=== PATIENT | female | born 1980 | race Caucasian/White ===

== ENCOUNTER 2020-09-15 17:28 | Emergency (ER) | payer OTHER ==
[~2020-09-15] VITALS: Ht 157.5 cm; Wt 62.6 kg
[~2020-09-15 17:28] MED LIST: ADDERALL 10 MG10 MG; ALPRAZOLAM 0.50.5 M1 PO; ALPRAZOLAM PO; BENTYL 20 MG TA20 M1 PO; DILANTIN 100 M100 MG PO; DILANTIN100 MG; DILANTIN100 MG PO; FENTANYL PA50 MCG/HR; FENTANYL PA50 MCG/HR TP; FLEXERIL PO; HYDROCODONE-AP1 EAC6 PO; IMODIUM A-D1 MG/5 ML; KEPPRA 500 MG500 M1 PO; LEXAPRO 10 MG T10 M1; LEXAPRO 10 MG T10 M1 PO; LEXAPRO20 MG PO; LUPRON DEPOT11.25 M3; MARINOL10 MG; MARINOL10 MG PO; MULTI FOR HER1 EACH; NAPROSYN500 MG PO; NASONEB NASAL1 EACH MC; NORCO 5-325 TA1 EACH PO; OTC PROBIOTIC; OXYCODONE HCL 55 MG PO; OXYCODONE HCL15 MG PO; OXYIR 5 MG CAPSU5 M1 PO; PHENERGAN 25 MG25 M1 PO; PHENERGAN25 M1 RC; PHENERGAN25 MG RECTAL; PREDNISONE 10 M10 MG PO; PREDNISONE 20 M20 M1 PO; PROBIOTIC1 EAC1 PO; PROMETHAZI6.25 MG/2 PO; PROMETHAZINE12.5 M1 PO; PROMS25 WY RECTAL; PROTONIX40 M2 PO; PROTONIX40 MG PO; QUESTRAN PACKET4 GM PO; RESTORIL30 MG; ROXICET 5-3251 EACH; ROXICODONE15 M1 PO; ROXICODONE5 M1 PO; TESSALON200 MG PO; VANCOCIN 125 M125 M1 PO; VANCOCIN 250 M250 M1 PO; VENTOLIN HFA INH8 GM INH; VICODIN; VICODIN 5-5001 EACH PO; VISTARIL 25 MG25 M1 PO; VOLTAREN GEL 1100 G1 TOP; WELCHOL; WELCHOL 625 MG625 M1; WELCHOL 625 MG625 M1 PO; XANAX 0.5 MG0.5 M1 PO; XANAX 1 MG TABLE1 MG PO; XANAX XR2 MG PO; XOPENEX1.25 MG/3 IH; ZANTAC 150MG T150 M1; ZOFRAN ODT4 MG; ZOFRAN ODT4 MG PO; ZOFRAN4 MG PO; ZOFRAN8 MG; ZOFRAN8 MG PO; ZPAK PO
[2020-09-15] MEDS ORDERED: ZOFRAN ODT4 MG PO (18:54)
[2020-09-15] MEDS ORDERED: PHENERGAN 25 MG25 MG PO (18:56)
[2020-09-15] MEDS ORDERED: OSTERA TABLET1 EAC1 PO (18:57)
[2020-09-15] MEDS ORDERED: VIT B PO (18:57)
[2020-09-15] MEDS ORDERED: XARELTO15 MG PO (18:58)
[2020-09-15 19:08] LABS: ABSOLUTE NEUTROPHILS 5.5 thou/uL (1.4-8.2); BASOPHILS 0.8 % (0.0-2.0); EOSINOPHILS 1.4 % (0.0-3.0); HEMATOCRIT 38.9 % (37.0-47.0); HEMOGLOBIN 12.9 gm/dL (12.0-15.0); MCH 30.8 pg (26.0-34.0); MCV 93.1 fL (80.0-100.0); MONOCYTES 6.1 % (1.0-8.0); PLATELET COUNT 405 thou/uL (150-400); POLYS 63.7 % (36.0-66.0); RBC 4.18 mil/uL (4.20-5.00); RDW 14.4 % (10.5-14.5); WBC 8.6 thou/uL (4.0-11.0)
[2020-09-15 19:11] LABS: ANION GAP 9 mmol/L (7-16); BUN 7 mg/dL (7-18); CHLORIDE 104 mmol/L (98-107); CO2 29 mmol/L (21-32); CREATININE 0.8 mg/dL (0.6-1.0); GLUCOSE 90 mg/dL (74-106); POTASSIUM 3.4 mmol/L (3.5-5.1); SODIUM 142 mmol/L (136-145)
[2020-09-15 19:17] LABS: ALBUMIN 3.9 g/dL (3.4-5.0); DIRECT BILIRUBIN < 0.1 mg/dL (<0.1-0.2); LIPASE 92 U/L (73-393); SGOT 12 U/L (15-37); SGPT 18 U/L (14-59); TOTAL BILIRUBIN 0.3 mg/dL (0.2-1.0); TOTAL PROTEIN 7.3 g/dL (6.4-8.2)
[2020-09-15 19:18] LABS: URINE BILIRUBIN NEGATIVE (Negative); URINE BLOOD NEGATIVE (Negative); URINE COLOR YELLOW; URINE GLUCOSE-RANDOM* NEGATIVE (Negative); URINE KETONES NEGATIVE (Negative); URINE NITRITE-REFLEX NEGATIVE (Negative); URINE PROTEIN (DIPSTICK) TRACE (Negative); URINE SPECIFIC GRAVITY 1.015 (1.005-1.035)
[2020-09-15 19:21] LABS: URINE LEUKOCYTES-REFLEX 1+ (Negative)
[2020-09-15 19:22] LABS: URINE CLARITY SL HAZY
[2020-09-15 19:36] LABS: CASTS None Seen /LPF (None Seen); CRYSTALS None Seen /LPF (None Seen); MUCUS >6 Heavy strn/LPF (None Seen); SQUAMOUS >10 Many /LPF (0-3); URINE RBC None Seen /HPF (NONE SEEN); URINE WBC-REFLEX 6-15 Few /HPF (0-5)
[2020-09-15 20:34] VITALS: BP 122/76
--- NOTE | 2020-09-15 21:57 | NUR ---
PT WAS IN WAITING ROOM WAITING FOR HER RIDE. I OVER HEARD HER ASKING OTHER VISITORS WHO THEY WERE HERE FOR AND THEN TELLING THE VISITORS DETAILS THAT SHE OVERHEARD ABOUT THEIR FAMILY MEMBER. SHE STARTED TALKING IN A DISPARAGING MANNER ABOUT THE ER PROVIDER CALLING HER A BITCH AND TELLING THE VISITORS THAT THEY SHOULD HAVE TAKEN THEIR FAMILY TO RESEARCH OR [facility]. I ASKED PT TO STOP TALKING TO OTHER VISITORS AND SIT QUIETLY IN THE WAITING ROOM UNTIL HER RIDE ARRIVES OR SHE CAN WAIT OUTSIDE. 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 I STATED THAT SHE CAN SIT QUIETLY IN THE WAITING ROOM, PT THEN WENT TO THE SECURITY OFFICE TO TALK TO THEM. WHEN SHE SAT BACK DOWN SHE ASKED IF I WAS THE HAR[employer]ST FI[employer] TICK[employer] AND THAT I CANT TELLHER TO LEAVE THE WAITING ROOM UNLESS I AM THE HARVEST FIELD TICK[employer]ER. I AGAIN ASKED HER TO SIT QUIETLY IN THE WAITING ROOMA ND TO NOT INTERFERE WITH OTHER VISITORS OR TO WAIT OUTSIDE AND IF NEEDED THE HAR[employer] FI[employer] T[employer] AND SECURITY COULD TALK TO HER ABOUT THIS WELL. PTS RIDE ARRIVED AND SHE STARTED TO WALK OUT PT THEN TURNED AROUND AND ASKED FOR MY REGISTERY NUMBER AND STATED THAT SHE WAS GOING TO REPORT ME TO THE STATE. SHE WENT TO SECURITY AND DEMANDED THAT THEY TELL HER MY FIRST ANDLAST NAME AND WHAT MY WORK HOURS WERE. PT THEN WALKED OUT OF THE ER WITH NO DEFICIT YELLING AT ME ON HER WAY TO THE PARKING LOT.
== END 2020-09-15 20:35 | disposition home or self-care (01) ==
LOC: ER 17:28
PROVIDERS: Nurse Practitioner
DX: R19.7 Diarrhea, unspecified (principal); R10.84 Generalized abdominal pain; Z88.0 Allergy status to penicillin; Z88.1 Allergy status to other antibiotic agents; Z91.041 Radiographic dye allergy status; Z88.2 Allergy status to sulfonamides; Z88.6 Allergy status to analgesic agent; Z88.8 Allergy status to other drugs, medicaments and biological substances; Z85.05 Personal history of malignant neoplasm of liver; Z85.528 Personal history of other malignant neoplasm of kidney